=== PATIENT | female | born 1955 | race Caucasian/White ===

== ENCOUNTER → 2017-02-24 | Outpatient (CLI) | payer BC ==
[~2017-02-24] MED LIST: BROMDAY 1.7 ML1.7 ML; DUREZOL 5 ML5 ML OP; NORCO 325 MG-51 TAB PO; PREMARIN .3MG0.3 MG PO; PROLIA60 MG/ML SC; PROTONIX 40MG T40 MG PO; SYSTANE LUBRICAN5 ML OP; WELLBUTRIN 100100 MG; WELLBUTRIN XL300 M1 PO
== END ==
LOC: MC.RAD 13:58
DX: Z12.31 Encounter for screening mammogram for malignant neoplasm of breast (principal)

== ENCOUNTER → 2017-07-15 | Outpatient (CLI) | payer BC | LOC: MHCPAIN 08:27 | DX: G89.29 Other chronic pain (principal); M47.27 Other spondylosis with radiculopathy, lumbosacral region; R51 Headache | CPT/HCPCS: G0463 ==

== ENCOUNTER → 2017-08-21 | Outpatient (CLI) | payer BC | LOC: MHCPAIN 08:44 | DX: M50.11 Cervical disc disorder with radiculopathy, high cervical region (principal) | CPT/HCPCS: J1100; J2250; J2405; J3010; Q9967 ==

== ENCOUNTER → 2017-08-29 | Outpatient (CLI) | payer BC | LOC: MHCPAIN 07:59 | DX: G89.29 Other chronic pain (principal); M50.11 Cervical disc disorder with radiculopathy, high cervical region; R51 Headache | CPT/HCPCS: G0463 ==

== ENCOUNTER → 2017-10-27 | Outpatient (CLI) | payer BC | LOC: MHCPAIN 09:03 | DX: G89.29 Other chronic pain (principal); M50.90 Cervical disc disorder, unspecified, unspecified cervical region; M54.12 Radiculopathy, cervical region; R51 Headache | CPT/HCPCS: G0463 ==

== ENCOUNTER 2017-12-29 13:00 | Outpatient (RCR) | payer BC | END 2017-12-30 | disposition home or self-care (01) | LOC: MKS.ESL.PT | DX: M50.10 Cervical disc disorder with radiculopathy, unspecified cervical region (principal); G89.29 Other chronic pain; R51 Headache ==

== ENCOUNTER 2018-01-27 13:00 | Outpatient (RCR) | payer BC | END 2018-04-21 | disposition home or self-care (01) | LOC: MKS.ESL.PT | DX: M54.12 Radiculopathy, cervical region (principal) ==

== ENCOUNTER → 2018-11-30 | Outpatient (CLI) | payer MEDICARE, BC | LOC: COL.RAD 08:04 | DX: R10.11 Right upper quadrant pain (principal) ==

== ENCOUNTER → 2018-12-22 | Outpatient (CLI) | payer MEDICARE, BC | LOC: MC.RAD 08:30 | DX: Z12.31 Encounter for screening mammogram for malignant neoplasm of breast (principal); Z98.82 Breast implant status ==

== ENCOUNTER → 2020-01-24 | Outpatient (CLI) | payer MEDICARE, BC | LOC: COL.LAB 15:09 | DX: G44.209 Tension-type headache, unspecified, not intractable (principal); Z20.828 Contact with and (suspected) exposure to other viral communicable diseases ==

== ENCOUNTER → 2021-01-04 | Outpatient (CLI) | payer MEDICARE, BC | LOC: MC.RAD 12-15 11:45 | DX: Z12.31 Encounter for screening mammogram for malignant neoplasm of breast (principal); Z98.890 Other specified postprocedural states; Z98.82 Breast implant status ==

== ENCOUNTER 2023-02-27 11:13 | Outpatient (RCR) | payer MEDICARE, BC | END 2023-03-27 | disposition home or self-care (01) | LOC: PT.GENESIS | DX: M25.552 Pain in left hip (principal); M25.551 Pain in right hip; S39.011D Strain of muscle, fascia and tendon of abdomen, subsequent encounter; M54.2 Cervicalgia; X58.XXXD Exposure to other specified factors, subsequent encounter ==

== ENCOUNTER 2023-08-26 09:15 | Outpatient (RCR) | payer MEDICARE, BC | END 2023-08-27 | disposition home or self-care (01) | LOC: PT.GENESIS | DX: H81.13 Benign paroxysmal vertigo, bilateral (principal) ==

== ENCOUNTER 2023-09-17 10:45 | Outpatient (RCR) | payer MEDICARE, BC | END 2023-09-25 | disposition home or self-care (01) | LOC: PT.GENESIS | DX: H81.13 Benign paroxysmal vertigo, bilateral (principal) ==

== ENCOUNTER 2023-11-21 08:49 | Outpatient (CLI) | payer MEDICARE, BC ==
[~2023-11-21] VITALS: Ht 177.8 cm; Wt 103.1 kg
[2023-11-21] MEDS ORDERED: Denosumab 60 MG/ML SYRINGE SQ ONE (09:00)
[2023-11-21 09:01] VITALS: BP 137/86; PULSE 95; TEMP 97.3
[2023-11-21] MEDS ORDERED: LIPITOR 10MG10 MG PO (09:20)
[2023-11-21] MEDS ORDERED: CYMBALTA 30MG30 MG PO (09:20)
[2023-11-21] MEDS ORDERED: NEXIUM 40MG40 MG PO (09:21)
[2023-11-21] MEDS ORDERED: FLONASEALLERGY NS (09:21)
[2023-11-21] MEDS ORDERED: XALATAN EYE DROPS OD (09:22)
[2023-11-21] MEDS ORDERED: VOLTAREN GEL 1%1 TU TP (09:22)
== END 2023-11-21 15:23 ==
LOC: EUO 08:49
DX: M81.0 Age-related osteoporosis without current pathological fracture (principal)
CPT/HCPCS: J0897

== ENCOUNTER 2024-05-04 10:57 | Outpatient (RCR) | payer MEDICARE, BC ==
[~2024-05-04] VITALS: Ht 177.8 cm; Wt 68.9 kg
[~2024-05-04 10:57] MED LIST changes: +CALCIUM 600 PLU1 TAB PO; +CYMBALTA 30MG30 MG PO; +EPA FISH OIL1 SGL PO; +FLONASEALLERGY NS; +GINKGO BILOBA40 M5 PO; +LIPITOR 10MG10 MG PO; +LUTEIN20 M1 PO; +NEXIUM 40MG40 MG PO; +PROBIOTIC BLEN1 EACH PO; -SYSTANE LUBRICAN5 ML OP; +SYSTANE0.3% OP; +VITAMIN D 400400 IU PO; +VOLTAREN GEL 1%1 TU TP; +XALATAN EYE DROPS OU; +ZOVIRAX400 MG PO
[2024-05-04] MEDS ORDERED: Romosozumab-aqqg 210 MG/2.34 ML 2-Syringe KIT SQ ONE (11:15)
[2024-05-04 11:17] VITALS: BP 145/82; PULSE 78; TEMP 97.5
[2024-05-04] MEDS ORDERED: EVENITY (2210 MG/2.3 SQ (11:24)
[2024-05-04] MEDS ORDERED: MOBIC15 MG PO (11:25)
--- NOTE | 2024-05-04 11:35 | NUR ---
Pt tolerated evenity without issue. She exits dept with steady gait. Free of complaints at discharge.
== END 2024-05-04 11:35 | disposition home or self-care (01) ==
LOC: EUO 10:57
DX: M81.0 Age-related osteoporosis without current pathological fracture (principal)
CPT/HCPCS: J3111

== ENCOUNTER 2024-06-01 10:52 | Outpatient (CLI) | payer MEDICARE, BC ==
[~2024-06-01] VITALS: Ht 177.8 cm; Wt 69.4 kg
[~2024-06-01 10:52] MED LIST changes: +EVENITY (2210 MG/2.3 SQ; +MOBIC15 MG PO
[2024-06-01 11:09] VITALS: BP 110/63; PULSE 93; TEMP 97.8
[2024-06-01] MEDS ORDERED: Romosozumab-aqqg 210 MG/2.34 ML 2-Syringe KIT SQ ONE (11:30)
--- NOTE | 2024-06-01 11:32 | NUR ---
Pt tolerated evenity without issue. She exits dept with steady gait. Free of complaints at discharge.
== END 2024-06-01 11:33 | disposition home or self-care (01) ==
LOC: EUO 10:52
DX: M81.0 Age-related osteoporosis without current pathological fracture (principal)
CPT/HCPCS: J3111